=== PATIENT | male | born 1985 | race Caucasian/White ===

== ENCOUNTER 2016-06-30 08:17 | Emergency (ER) | payer SELFPAY ==
[2016-06-30 08:17] VITALS: BP 127/65
[~2016-06-30 08:17] MED LIST: ACET325T9 PO
[2016-06-30] MEDS ORDERED: OLANZAPINE ZYDIS 5 MG TAB.RAPDIS ONE (09:03)
[2016-06-30] MEDS ORDERED: OLANZAPINE 2.5 MG TABLET ONE (09:06)
[2016-06-30] MEDS ORDERED: OLAN10TA9 PO (09:12)
[2016-06-30] MEDS: OLANZAPINE 2.5 MG TABLET PO ONE (09:15)
[2016-06-30] MEDS ORDERED: OLANZAPINE 10 MG PO ONE (09:30)
[2016-06-30] MEDS ORDERED: OLANZAPINE ZYDIS 5 MG TAB.RAPDIS PO ONE (09:30)
[2016-06-30] MEDS ORDERED: OLANZAPINE 2.5 MG TABLET PO ONE (09:30)
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
== END 2016-06-30 09:15 | disposition home or self-care (01) ==
LOC: ER 08:17
DX: M25.531 Pain in right wrist (principal); F20.9 Schizophrenia, unspecified; F17.200 Nicotine dependence, unspecified, uncomplicated; Z88.5 Allergy status to narcotic agent; Z88.1 Allergy status to other antibiotic agents; Z88.6 Allergy status to analgesic agent; Z88.8 Allergy status to other drugs, medicaments and biological substances; W22.8XXA Striking against or struck by other objects, initial encounter; Y93.89 Activity, other specified; Y99.8 Other external cause status; Y92.89 Other specified places as the place of occurrence of the external cause
CPT/HCPCS: 29125; 99284-25

== ENCOUNTER 2016-07-02 15:49 | Emergency (ER) | payer SELFPAY ==
[~2016-07-02 15:49] MED LIST changes: +OLAN10TA9 PO
[2016-07-02] MEDS ORDERED: OLAN10TA3 PO (16:01)
[2016-07-02] MEDS ORDERED: OLANZAPINE ZYDIS 5 MG TAB.RAPDIS ONE (16:03)
--- NOTE | 2016-07-02 16:09 | ED.ADGEN ---
Past History Past Medical History: Schizophrenia, Other Past Surgical History: Tonsillectomy Smoking: Less than 1pk/day Alcohol Use: Occasionally Drug Use: Other Adult General Chief Complaint Chief Complaint lost prescription HPI HPI Patient is a 31 year old male who presents requesting medication refill. has a h/o schizophrenia, ran out of his zyprexa. Seen in ED recently and given RX but lost the RX. Denies SI/HI, intermittent auditory hallucinations. Pt has a psychiatrist. Review of Systems Review of Systems Constitutional: Denies fever or chills [] Eyes: Denies change in visual acuity, redness, or eye pain [] HENT: Denies nasal congestion or sore throat [] Respiratory: Denies cough or shortness of breath [] Cardiovascular: No chest pain GI: Denies abdominal pain, nausea, vomiting, bloody stools or diarrhea [] : Denies dysuria or hematuria [] Musculoskeletal: Denies back pain or joint pain [] Integument: Denies rash or skin lesions [] Neurologic: Denies headache, focal weakness or sensory changes [] Current Medications Current Medications Current Medications Medications (Trade) Dose Ordered Sig/Jorge Start Time Stop Time Status Last Admin Dose Admin Olanzapine (Zyprexa) 10 mg 1X ONCE 07/02/16 16:00 07/02/16 16:01 UNV Allergies Allergies Allergies Coded Allergies Type Severity Reaction Last Updated Verified Haloperidol Lactate Allergy Unknown swelling 07/12/15 Yes haloperidol Allergy Unknown swelling 07/12/15 Yes sulfamethoxazole Allergy Unknown hives 07/12/15 Yes tramadol Allergy Unknown swelling 07/12/15 Yes trimethoprim Allergy Unknown hives 07/12/15 Yes Uncoded Allergies Type Severity Reaction Last Updated Verified narcotics Allergy Unknown 06/30/16 Physical Exam Physical Exam Constitutional: Well developed, well nourished, no acute distress, non-toxic appearance. hyperverbal, laughing, happy HENT: Normocephalic, atraumatic, bilateral external ears normal, oropharynx moist, no oral exudates, nose normal. [] Eyes: PERRLA, EOMI, conjunctiva normal, no discharge. [] Neck: Normal range of motion, no tenderness, supple, no stridor. [] Cardiovascular:Heart rate mild tachy with regular rhythm, no murmur [] Lungs & Thorax: Bilateral breath sounds clear to auscultation , no wheeze or crackles Extremities: No tenderness, no cyanosis, no clubbing, ROM intact, no edema. [] Neurologic: Alert and oriented X 3, normal motor function, normal sensory function, no focal deficits noted. [] Psychologic:hyperverbal but no internal stimuli noted, pt is NOT SI or HI EKG EKG [] Radiology/Procedures Radiology/Procedures [] Course & Med Decision Making Course & Med Decision Making Pertinent Labs and Imaging studies reviewed. (See chart for details) pt given a dose of zyprexa here, given RX for 20 more days and encouraged to f/ u with psychiatrist. Final Impression Final Impression schizophrenia[] Problems: Dragon Disclaimer Dragon Disclaimer This electronic medical record was generated, in whole or in part, using a voice recognition dictation system. HODA DOBBS MD Jul 02, 2016 16:09
[2016-07-02] MEDS ORDERED: OLANZAPINE ZYDIS 5 MG TAB.RAPDIS PO ONE (16:30)
[2016-07-02] MEDS ORDERED: OLANZAPINE 2.5 MG TABLET PO ONE (16:30)
== END 2016-07-02 16:29 | disposition home or self-care (01) ==
LOC: ER 15:49
DX: F20.9 Schizophrenia, unspecified (principal); F17.200 Nicotine dependence, unspecified, uncomplicated; Z88.1 Allergy status to other antibiotic agents; Z88.5 Allergy status to narcotic agent; Z88.6 Allergy status to analgesic agent; Z88.8 Allergy status to other drugs, medicaments and biological substances
CPT/HCPCS: 99284

== ENCOUNTER 2016-07-03 07:07 | Emergency (ER) | payer SELFPAY ==
[2016-07-03 07:07] VITALS: BP 110/60
[~2016-07-03 07:07] MED LIST changes: +OLAN10TA3 PO
--- NOTE | 2016-07-03 14:51 | ED.ADGEN ---
Past History Past Medical History: Other Past Surgical History: Other Smoking: Less than 1pk/day Alcohol Use: Occasionally Drug Use: Other Adult General Chief Complaint Chief Complaint flank pain HPI HPI Patient is a 31-year-old male with history of schizophrenia presents with right anterior lower chest wall pain. Symptoms are 2 days ago. Patient denies oral surgery. Pain is worse palpation and movement. Patient also complains of neck pain. Denies any pain or injury. Patient's been seen in this ER multiple times in the past 24 hours. He checked in early this morning but left after refusing to allow staff members. Vital signs. Later this morning, the patient walked to the [facility] was brought to the ED for days complaint. Denies fever, cough, sore throat abdominal and back pain. Patient denies drug use. Reports compliance medication. He does not wish to share worries currently living. History is limited due to poor cooperation. Review of Systems Review of Systems Review symptoms as per history of present illness. All other review symptoms are negative. Allergies Allergies Allergies Coded Allergies Type Severity Reaction Last Updated Verified Haloperidol Lactate Allergy Unknown swelling 07/12/15 Yes haloperidol Allergy Unknown swelling 07/12/15 Yes sulfamethoxazole Allergy Unknown hives 07/12/15 Yes tramadol Allergy Unknown swelling 07/12/15 Yes trimethoprim Allergy Unknown hives 07/12/15 Yes Uncoded Allergies Type Severity Reaction Last Updated Verified narcotics Allergy Unknown 06/30/16 Physical Exam Physical Exam Constitutional: Well developed, well nourished, no acute distress, non-toxic appearance. HENT: Normocephalic, atraumatic, bilateral external ears normal, oropharynx moist, no oral exudates, nose normal. Eyes: PERRLA, EOMI, conjunctiva normal. Neck: Normal range of motion, no tenderness. Cardiovascular:Heart rate regular rhythm, no murmur. Lungs & Thorax: Bilateral breath sounds clear to auscultation. Right lower anterior rib angle pain, tenderness, no deformity bruising subcutaneous emphysema or crepitus. Abdomen: Bowel sounds normal, soft, no tenderness. Skin: Warm, dry, no erythema, no rash. Back: No tenderness, no CVA tenderness. [ Extremities: No tenderness, no cyanosis, no clubbing, ROM intact, no edema. Neurologic: Alert and oriented X person and place, tangential and pressured speech Psychologic: Affect normal, judgement normal, mood normal. [] Current Patient Data Vital Signs Vital Signs Date Time Temp Pulse Resp B/P Pulse Ox O2 Delivery O2 Flow Rate FiO2 07/03/16 07:07 97.3 110 18 98 Room Air EKG EKG [] Radiology/Procedures Radiology/Procedures [] Impressions: Chest wall pain Course & Med Decision Making Course & Med Decision Making Pertinent Labs and Imaging studies reviewed. (See chart for details) [Reproducible chest wall pain] Final Impression Final Impression [1. Chest wall pain] Problems: Dragon Disclaimer Dragon Disclaimer This electronic medical record was generated, in whole or in part, using a voice recognition dictation system. HEATH CRISTOBAL DO Jul 03, 2016 14:51
== END 2016-07-03 08:37 | disposition home or self-care (01) ==
LOC: ER 07:07
DX: R07.89 Other chest pain (principal); M54.2 Cervicalgia; F17.200 Nicotine dependence, unspecified, uncomplicated; Z88.1 Allergy status to other antibiotic agents; Z88.6 Allergy status to analgesic agent; Z88.5 Allergy status to narcotic agent; Z88.8 Allergy status to other drugs, medicaments and biological substances
CPT/HCPCS: 99281

== ENCOUNTER 2018-01-29 14:30 | Emergency (ER) | payer SELFPAY ==
[~2018-01-29] VITALS: Ht 172.7 cm; Wt 68.0 kg
[2018-01-29 14:50] VITALS: BP 140/78
--- NOTE | 2018-01-29 15:03 | ED.ADGEN ---
Past History Past Medical History: Schizophrenia, Other Past Surgical History: Other Smoking: Less than 1pk/day Alcohol Use: Occasionally Drug Use: Methamphetamine, Other Adult General Chief Complaint Chief Complaint Hallucinations HPI HPI Patient is a 33-year-old male with history of schizophrenia and methamphetamine abuse who presents with popping and cracking sensation in his joints. Patient last slept some 36 hours ago after methamphetamine binge. States he is been noncompliant with his psychiatric medications. No HI, SI. Patient was were reviewed for his current complaint at [facility] earlier this morning. States he was told that he needs to go home and sleep and that his labs were normal. No other acute symptoms or complaints[] Review of Systems Review of Systems Review symptoms as per history of present illness. All other systems were reviewed and found to be within normal limits, except as documented in this note. Allergies Allergies Allergies Coded Allergies Type Severity Reaction Last Updated Verified Haloperidol Lactate Allergy Unknown swelling 07/12/15 Yes haloperidol Allergy Unknown swelling 07/12/15 Yes sulfamethoxazole Allergy Unknown hives 07/12/15 Yes tramadol Allergy Unknown swelling 07/12/15 Yes trimethoprim Allergy Unknown hives 07/12/15 Yes Uncoded Allergies Type Severity Reaction Last Updated Verified narcotics Allergy Unknown 06/30/16 Physical Exam Physical Exam Constitutional: Well developed, well nourished, no acute distress, non-toxic appearance. [] HENT: Normocephalic, atraumatic, bilateral external ears normal, oropharynx moist, no oral exudates, nose normal. [] Eyes: PERRLA, EOMI, conjunctiva normal, no discharge. [] Neck: Normal range of motion, no tenderness, supple, no stridor. [] Cardiovascular:Heart rate regular rhythm, no murmur [] Lungs & Thorax: Bilateral breath sounds clear to auscultation [] Abdomen: Bowel sounds normal, soft, no tenderness, no masses, no pulsatile masses. [] Skin: Warm, dry, no erythema, no rash. [] Back: No tenderness, no CVA tenderness. [] Extremities: No tenderness, no cyanosis, no clubbing, ROM intact, no edema. [] Neurologic: Alert and oriented X 3, normal motor function, normal sensory function, no focal deficits noted. [] Psychologic: Affect normal, anxious. No HI or SI.[] Current Patient Data Vital Signs Vital Signs Date Time Temp Pulse Resp B/P (MAP) Pulse Ox O2 Delivery O2 Flow Rate FiO2 01/29/18 14:50 98.5 98 20 100 Room Air EKG EKG [] Radiology/Procedures Radiology/Procedures [] Course & Med Decision Making Course & Med Decision Making Pertinent Labs and Imaging studies reviewed. (See chart for details) [Sleep-induced versus drug-induced versus psychiatric psychosis. Recommendations are resume please follow-up recommended.] Final Impression Final Impression [#1 Person with feared complaint in whom no diagnosis was made] Albert Disclaimer Albert Disclaimer This electronic medical record was generated, in whole or in part, using a voice recognition dictation system. HEATH CRISTOBAL DO Jan 29, 2018 15:03
== END 2018-01-29 15:15 | disposition home or self-care (01) ==
LOC: ER 14:30
DX: Z71.1 Person with feared health complaint in whom no diagnosis is made (principal); R20.8 Other disturbances of skin sensation; F20.9 Schizophrenia, unspecified; F17.200 Nicotine dependence, unspecified, uncomplicated; F15.10 Other stimulant abuse, uncomplicated; Z88.8 Allergy status to other drugs, medicaments and biological substances; Z88.2 Allergy status to sulfonamides; Z88.1 Allergy status to other antibiotic agents
CPT/HCPCS: 99283